=== PATIENT | female | born 1985 ===

== ENCOUNTER → 2018-09-24 | Outpatient (CLI) | payer BC | LOC: LAB SHORT 11:22 → LAB 11:22 | DX: Z34.91 Encounter for supervision of normal pregnancy, unspecified, first trimester (principal) | CPT/HCPCS: 87081; 87653 ==

== ENCOUNTER 2018-09-29 11:16 | Inpatient (IN) | payer BC ==
[~2018-09-29] VITALS: Ht 160 cm; Wt 90.0 kg
[2018-09-29 12:57] LABS: BASOPHILS ABSOLUTE AUTO 0.05 K/mm3 (0.00-0.23); BASOPHILS PERCENT AUTO 0 % (0-2); EOSINOPHILS ABSOLUTE AUTO 0.07 K/mm3 (0.00-0.68); EOSINOPHILS PERCENT AUTO 0 % (0-6); Hematocrit 35.4 % (33.0-51.0); Hemoglobin 11.5 g/dL (11.5-16.0); IMMATURE GRAN ABSOLUTE AUTO 0.18 K/mm3 (0.00-0.10); IMMATURE GRAN PERCENT AUTO 1 % (0-1); LYMPHOCYTES ABSOLUTE AUTO 2.31 K/mm3 (0.84-5.20); LYMPHOCYTES PERCENT AUTO 14 % (21-46); MONOCYTES ABSOLUTE AUTO 0.86 K/mm3 (0.16-1.47); MONOCYTES PERCENT AUTO 5 % (4-13); Mean Corpuscular HGB 29.2 pg (26.0-34.0); Mean Corpuscular HGB Conc 32.5 g/dL (31.5-36.5); Mean Corpuscular Volume 90 fL (80-100); Mean Platelet Volume 10.5 fL (9.1-12.4); NEUTROPHILS ABSOLUTE AUTO 12.61 K/mm3 (1.96-9.15); NEUTROPHILS PERCENT AUTO 79 % (41-73); Platelet Count 400 K/mm3 (150-400); RDW Coefficient Variation 13.4 % (11.7-14.2); RDW Standard Deviation 43.9 fL (35.1-46.3); Red Blood Cell Count 3.94 M/mm3 (3.80-5.20); White Blood Cell Count 16.08 K/mm3 (4.00-11.30)
[2018-09-29] MEDS ORDERED: Verotin-Gr Cap1 EACH (13:02)
[2018-09-29] MEDS ORDERED: FOLGARD TABLET1 EACH (13:02)
--- NOTE | 2018-09-29 21:13 | NUR ---
ASSUMED CARE AT 1900 CHARTED RECOVERY AND VITALS UNDER CHATO JAUREGUI'S LOGIN BY MISTAKE.
--- NOTE | 2018-09-29 23:27 | NUR ---
PATIENT REQUESTED IV TO BE REMOVED. THE RISKS WERE EXPLAINED TO THE PATIENT, SHE STATES THAT SHE UNDERSTANDS AND WOULD STILL LIKE IT REMOVED.
[2018-09-30 06:29] LABS: BASOPHILS ABSOLUTE AUTO 0.05 K/mm3 (0.00-0.23); BASOPHILS PERCENT AUTO 0 % (0-2); EOSINOPHILS ABSOLUTE AUTO 0.03 K/mm3 (0.00-0.68); EOSINOPHILS PERCENT AUTO 0 % (0-6); Hematocrit 31.8 % (33.0-51.0); Hemoglobin 10.3 g/dL (11.5-16.0); IMMATURE GRAN ABSOLUTE AUTO 0.26 K/mm3 (0.00-0.10); IMMATURE GRAN PERCENT AUTO 1 % (0-1); LYMPHOCYTES PERCENT AUTO 12 % (21-46); MONOCYTES ABSOLUTE AUTO 1.65 K/mm3 (0.16-1.47); MONOCYTES PERCENT AUTO 7 % (4-13); Mean Corpuscular HGB 29.2 pg (26.0-34.0); Mean Corpuscular HGB Conc 32.4 g/dL (31.5-36.5); Mean Corpuscular Volume 90 fL (80-100); Mean Platelet Volume 9.7 fL (9.1-12.4); NEUTROPHILS PERCENT AUTO 79 % (41-73); Platelet Count 381 K/mm3 (150-400); RDW Coefficient Variation 13.7 % (11.7-14.2); RDW Standard Deviation 44.7 fL (35.1-46.3); Red Blood Cell Count 3.53 M/mm3 (3.80-5.20); White Blood Cell Count 23.39 K/mm3 (4.00-11.30)
--- NOTE | 2018-09-30 17:56 | NUR ---
CONSULT. BABY BORN AT 36.5 WEEKS GESTATION AND IS NOT YET 24 HOURS OLD. HAS BEEN TO BREAST SEVERAL TIMES, BUT HAS NOW SLEPT FOR OVER 4 HOURS AND IS STILL SLEEPING. INSTRUCT IN ENERGY CONSERVATION OF THE LATE BABY AND STIMULATING BREASTS TO PRODUCE A FULL MILK SUPPLY BABY TENDS TO TIRE EASILY AND DOESN'T SUCK LONG ENOUGH FOR GOOD PRODUCTION. BABY IS TO BE WEIGHED AT 24 HOURS AND WILL RE EVALUATE IF SUPPLEMENTS WILL BE NEEDED. MOM FEELS SHE IS LATCHING AND SUCKLING FAIRLY WELL SO FAR. INSTRUCT IN CHANGES TO EXPECT DURING THE FIRST WEEK WITH BABY AND WITH FEEDINGS AND REFERRED TO [facility] FOR PHOTOS AND INFORMATION. PLAN TO SEE AGAIN TOMORROW TO EVALUATE SUCK.
--- NOTE | 2018-09-30 19:26 | NUR ---
PT DISCHARGED TO BOARDER STATUS, DISCHARGE INSTRUCTIONS REVIEWED WITH PT AND SO, NO ACUTE DISTRESS NOTED. PT DENIES ANY FURTHER QUESTIONS OR CONCERNS.
== END 2018-09-30 21:01 | disposition home or self-care (01) | DRG 807 ==
LOC: OBS 11:16 → BC 11:16 → OBS 11:33 → BC 11:35
PROVIDERS: ADMIT Nurse Practitioner Obstetrics & Gynecology
PROC: 10E0XZZ Delivery of Products of Conception, External Approach (ICD-10-PCS; principal; 2018-09-30)
DX: O60.14X0 Preterm labor third trimester with preterm delivery third trimester, not applicable or unspecified (principal); Z37.0 Single live birth; Z3A.36 36 weeks gestation of pregnancy
CPT/HCPCS: 36415; 85025; J2590; J7120

== ENCOUNTER → 2020-07-07 | Outpatient (CLI) | payer BC ==
[~2020-07-07] MED LIST: FOLGARD TABLET1 EACH; Verotin-Gr Cap1 EACH
[2020-07-10 07:10] LABS: CHLAMYDIA TRACHOMATIS, NAA Negative (Negative)
== END ==
LOC: LAB 19:36 → LAB SHORT 19:36
PROVIDERS: Registered Nurse Community Health
DX: Z34.91 Encounter for supervision of normal pregnancy, unspecified, first trimester (principal)
CPT/HCPCS: 87491; 87591